=== PATIENT | female | born 1960 | race Two or more races ===

== ENCOUNTER 2025-03-02 18:11 | Inpatient (IN) | payer MEDICAID ==
[~2025-03-02] VITALS: Ht 152.4 cm; Wt 78.6 kg
[~2025-03-02 18:11] MED LIST: LISI2.5T47 PO; NIFE1TAB31 PO; SODI650T PO
[2025-03-02] MEDS: INSULIN LISPRO (HUMAN) 100 UNITS/ML ML SC SCH (22:00)
--- NOTE | 2025-03-02 22:09 | DVHHP2 ---
Admitting Diagnosis: Acute diastolic congestive heart failure Anasarca Exertional shortness of breath Uncontrolled hypertension Acute on chronic renal failure - History of Present Illness Ms. Cheri Goff 64-year-old middle-aged female of middle-aged origin, with known Longstanding history of uncontrolled hypertension x yrs. Uncontrolled NIDDM x 2 yrs recently treated for gouty arthritis affecting left foot at [facility], as of March 01 Known history of chronic kidney disease stage IV is admitted for further eval and management of progressive worsening of exertional shortness of breath, PND and lower back pains x 1 week No history of nonsteroidals, nephrotoxic agent or contrast study. Patient's poo r historian Part of the history is obtained from patient's daughter and sister. As per sister, her renal functions sister 64-year-old patient with significant history of diabetes type 2, hypertension longstanding and poorly controlled, chronic kidney disease stage 4 with baseline GFR per daughter around 17-20 following at [facility] Dr. Benavides last tele visit in December 2024. Patient denies any history of kidney stones, NSAID use or autoimmune disease. She endorses one-week history of progressive shortness of breath on exertion associated for the last couple of days with orthopnea and leg edema despite her medications which include Farxiga, hydrochlorothiazide 25 mg daily and lisinopril 2.5 mg daily in addition to excited to for history of DVT. Patient also complains of left 1st metatarsophalangeal joint pain and swelling for the last couple of days. She de nies difficulty with micturition, complains of mild dysuria and denies any hematuria but complains of bilateral flank pain 5/10 worse with changing movement no fevers no chills. Laboratory data reveals serum creatinine 2.66 mg/dL with GFR of 19, hyperuric emia of 11 and chest x-ray showing cephalization of the pulmonary vasculature. And cardiomegaly. Past Medical History Hypertension, diabetes type 2, Chronic kidney disease four Past Medical History Past medical history records: Reviewed Cardiovascular history: Known history of hypertension x years complicated by CKD Did not comply with medication and diet for long time Currently on combination of Procardia, lisinopril, and HCTZ Respiratory history: Known history of obesity hypoventilation, sleep apnea Gastrointestinal history: GE reflux Genitourinary history: Known history of chronic kidney disease stage 4 Recently hospitalized at [facility] on March 01, 2025 Endocrine history: Known history of knp-[id number] diabetes Hemoglobin A1c runs around 6.5 % Currently on Farxiga 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 Neurology history: Musculoskeletal history: Known history of gout- Hemato-oncology history: Psychiatric history: Mixed affect disorder Allergies: Coded Allergies: NO KNOWN ALLERGIES (Unverified , 03/02/25) Home Meds Active Scripts Furosemide (Lasix) 20 Mg Tb, 1 TAB PO DAILY PRN, #50 TAB 1 Refill PRN edema at 2-3 times/ week to max once/d Prov:AMY QURESHI MD 03/06/25 Prednisone (Prednisone) 20 Mg Tab, 20 MG PO DAILY@LUNCH for 10 Days, #10 TAB Prov:AMY QURESHI MD 03/06/25 Losartan Potassium (Losartan Potassium) 25 Mg Tab, 12.5 MG PO DAILY@700 for 90 Days, TAB Hold if SBP <100 Contact PMD if angioedema Prov:AMY QURESHI MD 03/06/25 Allopurinol (ZYLOPRIM TABLET) 100 Mg Tb, 50 MG PO DAILY@1000 for 90 Days, TAB Prov:AMY QURESHI MD 03/06/25 Dapagliflozin Propanediol (Farxiga) 10 Mg Tab, 1 TAB PO DAILY@BREAKFAST for 90 Days, #90 TAB Hold if dizzy or SBP <100 Prov:AMY QURESHI MD 03/06/25 Rivaroxaban (Xarelto Tablet) 10 Mg Tb, 1 TAB PO DAILY@1400 for 90 Days, #90 TAB Hold if internal bleeding Prov:AMY QURESHI MD 03/06/25 Atorvastatin Calcium (ATORVASTATIN CALCIUM) 40 Mg Tab, 1 TAB PO DAILY@DINNER for 90 Days, #90 TAB Hold if muscle cramps Prov:AMY QURESHI MD 03/06/25 Docusate Sodium (Docusate Sodium) 100 Mg Cap, 100 MG PO BID for 50 Days, #100 CAP Prov:AMY QURESHI MD 03/06/25 Reported Medications Sodium Bicarbonate (Sodium Bicarbonate) 650 Mg Tab, 1 TAB PO DAILY for 90 Days, #90 03/02/25 Discontinued Reported Medications Nifedipine (Nifedipine Er) 30 Mg Tab, 1 TAB PO DAILY for 60 Days, #60 5/8/25 Lisinopril (Lisinopril) 2.5 Mg Tab, 1 TAB PO DAILY for 90 Days, #180 TAKE 1 TABLET BY MOUTH DAILY NEEDED FOR BP > 140/90, REPEAT DOSE IN 1 HOUR IF BP ELEVATED DIRECTED. 03/02/25 Hctz (Hydrochlorothiazide) 25 Mg Tab, 1 TAB PO DAILY 03/02/25 Current Medications Current Medications Medications (Trade) Dose Ordered Sig/Zak Route PRN Reason Start Time Stop Time Status Last Admin Sennosides (Senokot Tablet) 8.6 mg HS PO 03/05/25 22:00 03/06/25 18:43 DC 03/05/25 21:19 Prednisone 20 mg DAILY PO 03/06/25 10:00 03/06/25 18:43 DC 03/06/25 09:02 Rivaroxaban (Xarelto Tablet) 10 mg DAILY PO 03/06/25 10:00 03/06/25 18:43 DC 03/06/25 09:03 Review of Systems Constitutional: Denies easy tiredness, denies fever chills weight loss HEENT: Denies headache/conjunctival/ENT pains or congestion, Denies hoarse voice, hearing or visual deficit Neck: Denies cervical spine local/radicular pains, denies goiters/ stridor Denies stiffness spasms, reduced ROM, RS: Denies chest congestion, cough, wheezing, SOB, pleuritic chest pains CVS: Denies angina, palpitation, SOB, edema, orthopnea, PND GI: Denies loss of appetite, abdominal pains, tenderness, N/V/D, Denies melena, GI bleeding,constipation, : Denies dysuria, flank pains, frequency, hematuria, Denies passing foul odor/cloudy turbid urine, nocturia MS: Denies generalized aches/pains, back pains, spasms, stiffness, Denies radicular pains, denies generalized myalgias/muscle weakness EXTs: Denies edema, rash, open wounds, discoloration, radicular pains NEURO: Denies hypersomnolence, confused mental status, Denies focal weakness or seizures/tremors/myoclonic jerks SKIN: Denies rashes or open ulcerated wound ENDOCRINE: Denies polyuria, polydipsia, denies intolerance to heat and cold HEM/LYMPH: Denies easy tiredness, bruising, lymphadenopathy ALLERGY: Denies allergic reactions Psychiatry: Denies anxiety or depression disorder Otherwise the Review of Systems is Negative as per History & Physical Interview: Yes Vital Signs Vital Signs Date Time Temp Pulse Resp B/P (MAP) Pulse Ox O2 Delivery O2 Flow Rate FiO2 03/06/25 13:00 98.0 57 17 105/63 (77) 95 98.0 03/06/25 07:30 Room Air* 0 21 Physical Exam General appearance: Well-developed, well-nourished Awake alert oriented x3 no respiratory distress Head: Normocephalic nontraumatic Eyes: EOMI, TERRA, sclera nonicteric, conjunctive- pale ENT: No congestion, NSL bilateral symmetrical, oral mucosa dry Neck: Supple, carotid upstroke +2, trachea midline, JVD-3 cm, C spine- Full ROM No thyroid or lymph node , no use of sternomastoid muscle Chest: Bilateral symmetrical expansions, No costochondral tenderness Breasts: I exam - Bilateral symmetrical, Pexam - deferred Lungs: clear breath sounds all over except reduced at bases CVS: PMI- cm medial to L MCL in fifth ICS , S1- S2 NSR no S3 GI: Abdomen soft, obese, bowel sounds normoactive No focal tenderness, no rebound tenderness No hepatosplenomegaly, no mass no hernia , : No CVA tenderness, no bladder mass palpable, genitalia-NE SKIN: Turgor normal, color pink, no rash, no icterus, No varicosity, no ulcers or wounds EXTs: No edema, color pink, no rash, no ecchymosis distal pulses +2 capillary refill <2 seconds, No open wounds JOINTS; full range of motion BACK: No apparent lumbosacral spinal muscle tenderness, LYMPH NODES: No cervical, axillary or inguinal lymph nodes Neuro: Awake alert oriented 4, coherent, all cognitives- intact No pronator drift, no focal motor deficit, No focal sensory deficit, DTR +2, gait steady PSYCH: Affect mildly depressed-denies suicidal ideation Results Labs Test 03/06/25 06:15 03/05/25 05:26 03/04/25 05:28 03/03/25 18:20 Range/Units POC Glucose 142 H 70-106 mg/dl Sodium Level 135 L 136-145 mmol/L Potassium Level 3.5 3.5-5.1 mmol/L Chloride Level 100 98-107 mmol/L Carbon Dioxide Level 22 20-31 mmol/L Anion Gap 13 5-15 Blood Urea Nitrogen 69 H 9-23 mg/dL Creatinine 3.04 H 0.550-1.02 mg/dL Glomerular Filtration Rate Calc 17 >90 mL/min BUN/Creatinine Ratio 22.7 H 10.0-20.0 Serum Glucose 122 H 74-106 mg/dL Uric Acid 12.2 H 3.1-7.8 mg/dL Calcium Level 9.2 8.7-10.4 mg/dL Erythrocyte Sedimentation Rate 28 H 0-20 mm/hr C-Reactive Protein High Sensitivity 0.73 <1.0 mg/dL Hepatitis B Surface Antigen Negative Negative Hepatitis B Surface Antibody Negative Negative Hepatitis C Antibody Negative Negative Urine Color Colorless Yellow Urine Clarity Clear Clear Urine pH 5.0 5.0-9.0 Urine Specific [place] 1.005 1.001-1.035 Urine Protein Negative Negative Urine Ketones Negative Negative Urine Blood Negative Negative /uL Urine Nitrite Negative Negative Urine Bilirubin Negative Negative Urine Urobilinogen Normal Negative mg/dL Urine Leukocyte Esterase Negative Negative /uL Urine RBC None seen 0 - 4 /hpf Urine Microscopic WBC 0-5 /HPF Urine Squamous Epithelial Cells None seen <5 /hpf Urine Bacteria None seen None Seen /hpf Urine Creatinine 14.45 L 30.0-125.0 mg/dL Urine Protein/Creatinine Ratio 0.42 Urine Glucose 2+ H Normal mg/dL Urine Total Protein < 6.0 1-14 mg/dL Test 03/03/25 15:50 03/03/25 04:28 Range/Units Anti-Nuclear Antibody Screen Negative Negative Complement C3 132 82-167 mg/dL Complement C4 46 H 12-38 mg/dL White Blood Count 7.3 4.4-10.8 10^3/uL Red Blood Count 3.99 L 4.0-5.20 10^6/uL Hemoglobin 11.6 L 12.2-16.2 g/dL Hematocrit 33.2 #L 36.0-46.0 % Mean Corpuscular Volume 83.2 80.0-100.0 fL Mean Corpuscular Hemoglobin 29.1 28.0-32.0 pg Mean Corpuscular Hemoglobin Concent 34.9 32.0-36.0 g/dL Red Cell Distribution Width 13.4 11.8-14.3 % Platelet Count 287 140-450 10^3/uL Mean Platelet Volume 9.0 6.9-10.8 fL Neutrophils (%) (Auto) 50.8 37.0-80.0 % Lymphocytes (%) (Auto) 41.4 10.0-50.0 % Monocytes (%) (Auto) 7.2 0.0-12.0 % Eosinophils (%) (Auto) 0.3 0.0-7.0 % Basophils (%) (Auto) 0.3 0.0-2.0 % Neutrophils # (Auto) 3.7 1.6-8.6 10 ^3/uL Lymphocytes # (Auto) 3.0 0.4-5.4 10 ^3/uL Monocytes # (Auto) 0.5 0-1.3 10 ^3/uL Eosinophils # (Auto) 0 0-0.8 10 ^3/uL Basophils # (Auto) 0 0-0.2 10 ^3/uL Nucleated Red Blood Cells 0.1 % Hemoglobin A1c 6.2 H <5.7 % A1C Phosphorus Level 3.9 2.4-5.1 mg/dL Magnesium Level 2.1 1.6-2.6 mg/dL Total Bilirubin 0.3 0.2-1.0 mg/dL Aspartate Amino Transferase (AST) 13 13-40 U/L Alanine Aminotransferase (ALT) 17 7-40 U/L Alkaline Phosphatase 87 46-116 U/L Total Protein 6.8 5.7-8.2 g/dL Albumin 4.4 3.2-4.8 g/dL Triglycerides Level 94 < 150 mg/dL Cholesterol Level 153 < 200 mg/dL LDL Cholesterol 71 < 100 mg/dL HDL Cholesterol 59 40-59 mg/dL Microbiology Date/Time Source Procedure Growth Status 03/03/25 18:20 Urine - Midstream Clean Catch Urine Culture - Final Complete Primary Diagnosis Acute on chronic congestive heart failure Acute cor pulmonale Acute on chronic renal failure Acute gout Uncontrolled NIDDM Uncontrolled hypertension Admitting Diagnosis: Acute on chronic congestive heart failure Acute cor pulmonale Acute on chronic renal failure Acute gout Uncontrolled NIDDM Uncontrolled hypertension 2' Diagnosis/Comorbidities Exogenous obesity in a young adult with current BMI > 30-35 kg per m2 Plan admit patient to telemetry floor Serial EKGs and enzymes 2D echocardiogram Continue NTG 0.4 mg sublingual Q 5 minutes x3 p.r.n. angina Continue lisinopril 2.[address] patient on hydralazine 50 mg p.o. Q 8 hr Renal ultrasound Daily intake and output AMY QURESHI MD March 02, 2025 22:09
[2025-03-02 22:35] VITALS: BP 159/49; PULSE 77; RESP 18; TEMP 97.8; O2SAT 99
[2025-03-02] MEDS ORDERED: ALPRAZolam 0.25 MG TAB PO PRN (23:00)
[2025-03-02 23:12] LABS: Phosphorus 3.9 mg/dL (2.4-5.1); Uric Acid 10.9 mg/dL (3.1-7.8)
[2025-03-02] MEDS ORDERED: DAPA1TAB4 PO (23:23)
[2025-03-02] MEDS ORDERED: RIVA10TA2 PO (23:23)
[2025-03-02] MEDS ORDERED: HYDR25TA5 PO (23:23)
[2025-03-02] MEDS ORDERED: ATOR40TA52 PO (23:23)
[2025-03-02 23:24] VITALS: BP 160/49; PULSE 77; RESP 18; TEMP 97.8
--- NOTE | 2025-03-02 23:37 | DVH ---
BILATERAL LOWER EXTREMITY VENOUS DOPPLER ULTRASOUND CLINICAL HISTORY: H/o DVT TECHNIQUE: Grayscale ultrasound with compression, color Doppler flow imaging with pulsed duplex sonog lev of the bilateral lower extremity deep venous system from the common femoral veins through the p opliteal veins is performed. COMPARISON: None FINDINGS: Right common femoral vein: Negative. Right greater saphenous vein: Negative. Right deep femoral vein: Negative. Right femoral vein: Negative. Right popliteal vein: Negative. Left common femoral vein: Negative. Left greater saphenous vein: Negative. Left deep femoral vein: Negative. Left femoral vein: Negative. Left popliteal vein: Negative. Other: Visualized bilateral popliteal trifurcation and posterior tibial veins demonstrate color flow. IMPRESSION: No sonographic evidence of deep venous thrombosis in either lower extremity at this time. HS:Y
[2025-03-02] MEDS: ATORVASTATIN 20 MG TAB PO ONE (23:45)
[2025-03-03] VITALS (7 sets, daily range): BP systolic 118–154; BP diastolic 46–69; PULSE 61–89; RESP 16–19; TEMP 97.8–98.6; O2SAT 96–99
[2025-03-03] MEDS: ATORVASTATIN 20 MG TAB PO ONE (01:24)
[2025-03-03 06:25] LABS: Alanine Aminotransferase 17 U/L (7-40); Albumin 4.4 g/dL (3.2-4.8); Alkaline Phosphatase 87 U/L (46-116); Anion Gap 12 (5-15); Aspartate Aminotransferase 13 U/L (13-40); BUN/Creatinine Ratio 25.9 (10.0-20.0); Calcium 9.5 mg/dL (8.7-10.4); Carbon Dioxide 20 mmol/L (20-31); Chloride 102 mmol/L (98-107); Cholesterol 153 mg/dL (< 200); HDL Cholesterol 59 mg/dL (40-59); LDL Cholesterol 71 mg/dL (< 100); Magnesium 2.1 mg/dL (1.6-2.6); Potassium 3.9 mmol/L (3.5-5.1); Total Protein 6.8 g/dL (5.7-8.2); Triglycerides 94 mg/dL (< 150)
[2025-03-03 06:26] LABS: Phosphorus 3.9 mg/dL (2.4-5.1)
[2025-03-03 06:28] LABS: Basophils # (auto) 0 10 ^3/uL (0-0.2); Basophils % (auto) 0.3 % (0.0-2.0); Eosinophils # (auto) 0 10 ^3/uL (0-0.8); Eosinophils % (auto) 0.3 % (0.0-7.0); Hematocrit 33.2 % (36.0-46.0); Hemoglobin 11.6 g/dL (12.2-16.2); Lymphocytes % (auto) 41.4 % (10.0-50.0); Mean Corpuscular Hemoglobin 29.1 pg (28.0-32.0); Mean Corpuscular Hgb Conc. 34.9 g/dL (32.0-36.0); Mean Corpuscular Volume 83.2 fL (80.0-100.0); Monocytes # (auto) 0.5 10 ^3/uL (0-1.3); Monocytes % (auto) 7.2 % (0.0-12.0); Neutrophils # (auto) 3.7 10 ^3/uL (1.6-8.6); Neutrophils % (auto) 50.8 % (37.0-80.0); Nucleated Red Blood Cells % 0.1 %; Platelet Count (auto) 287 10^3/uL (140-450); Red Blood Cells 3.99 10^6/uL (4.0-5.20); Red Cell Distribution Width 13.4 % (11.8-14.3); White Blood Cell 7.3 10^3/uL (4.4-10.8)
[2025-03-03 06:29] LABS: Bilirubin, Total 0.3 mg/dL (0.2-1.0); Blood Urea Nitrogen 69 mg/dL (9-23); Glucose 114 mg/dL (74-106); Sodium 134 mmol/L (136-145)
[2025-03-03 06:44] LABS: Uric Acid 11.2 mg/dL (3.1-7.8)
--- NOTE | 2025-03-03 06:54 | DVH ---
EXAM: XR Chest, 1 View CLINICAL INDICATION: CHF TECHNIQUE: Frontal view of the chest. COMPARISON: None FINDINGS: LUNGS AND PLEURAL SPACES: See below. HEART: Cardiomegaly with mild congestion. MEDIASTINUM: Unremarkable. Normal mediastinal contour. BONES/JOINTS: Unremarkable. No acute fracture. OTHER FINDINGS: . . . IMPRESSION: Cardiomegaly with mild congestion.
--- NOTE | 2025-03-03 07:04 | DVH ---
EXAM: XR Left Foot, 2 Views CLINICAL INDICATION: gout TECHNIQUE: Frontal and lateral views of the left foot. COMPARISON: None FINDINGS: BONES/JOINTS: See below. SOFT TISSUES: Soft tissue swelling without acute fracture. No radiopaque foreign body. OTHER FINDINGS: . IMPRESSION: 1. Soft tissue swelling without acute fracture. 2. If symptoms persist, further evaluation with CT is recommended.
[2025-03-03] MEDS: EMPAGLIFLOZIN 10 MG TAB PO SCH (08:00)
[2025-03-03] MEDS: SODIUM BICARBONATE 650 MG TAB PO SCH (10:38)
[2025-03-03] MEDS: LISINOPRIL 5 MG TAB PO SCH (10:39)
--- NOTE | 2025-03-03 15:50 | DVHINCON2 ---
Date of service: March 03, [address] Rob Reason for Consultation Chronic kidney disease History of Present Illness 64-year-old patient with significant history of diabetes type 2, hypertension longstanding and poorly controlled, chronic kidney disease stage 4 with baseline GFR per daughter around 17-20 following at [facility] Dr. Benavides last tele visit in December 2024. Patient denies any history of kidney stones, NSAID use or autoimmune disease. She endorses one-week history of progressive shortness of breath on exertion associated for the last couple of days with orthopnea and leg edema despite her medications which include Farxiga, hydrochlorothiazide 25 mg daily and lisinopril 2.5 mg daily in addition to excited to for history of DVT. Patient also complains of left 1st metatarsophalangeal joint pain and swelling for the last couple of days. She denies difficulty with micturition, complains of mild dysuria and denies any hematuria but complains of bilateral flank pain 5/10 worse with changing movement no fevers no chills. Laboratory data reveals serum creatinine 2.66 mg/dL with GFR of 19, hyperuricemia of 11 and chest x-ray showing cephalization of the pulmonary vasculature. And cardiomegaly. Past Medical History Hypertension, diabetes type 2, Chronic kidney disease four Past Surgical History Patient denies any history of kidney biopsy Allergies: Coded Allergies: NO KNOWN ALLERGIES (Unverified , 03/02/25) Home Meds Reported Medications Dapagliflozin Propanediol (Farxiga) 10 Mg Tab, 1 TAB PO DAILY 03/02/25 Lisinopril (Lisinopril) 2.5 Mg Tab, PO 03/02/25 Hctz (Hydrochlorothiazide) 25 Mg Tab, 1 TAB PO DAILY 03/02/25 Sodium Bicarbonate (Sodium Bicarbonate) 650 Mg Tab, 1 PO DAILY 03/02/25 Rivaroxaban (Xarelto Tablet) 10 Mg Tb, 1 TAB PO DAILY 03/02/25 Atorvastatin Calcium (ATORVASTATIN CALCIUM) 40 Mg Tab, 1 TAB PO DAILY 03/02/25 Current Medications Current Medications Medications (Trade) Dose Ordered Sig/Zak Route PRN Reason Start Time Stop Time Status Last Admin Atorvastatin Calcium (Lipitor) 40 mg HS PO 03/03/25 22:00 Lisinopril (Zestril Tablet) 2.5 mg DAILY PO 03/03/25 10:00 03/03/25 10:39 Empaglifozin (Jardiance) 10 mg DAILY@0800 PO 03/03/25 08:00 Insulin Human Lispro (HumaLOG) ACHS SC 03/02/25 22:00 Sodium Bicarbonate 650 mg BID PO 03/03/25 10:00 03/03/25 10:38 Alprazolam (Xanax Tablet) 0.25 mg Q12HP PRN PO ANXIETY 03/02/25 23:00 Hydrocortisone Sodium Succinate (Solu-CORTEF INJECTION) 50 mg Q12HR IV 03/03/25 22:00 Allopurinol (Zyloprim Tablet) 100 mg DAILY PO 03/04/25 10:00 03/03/25 13:31 DC Allopurinol (Zyloprim Tablet) 50 mg DAILY PO 03/03/25 13:31 Family History: Diabetes mellitus G8 MOTHER FH: kidney disease G8 FATHER Hypertension G8 MOTHER Family History Coronary artery disease in the father as well as Chronic kidney disease requiring dialysis. Kidney stones in the daughter. Review of Systems HEENT: Oral mucosa dry Neck no JVD Cardiovascular: Denies for chest pain denies positive for orthopnea leg edema Respiratory: Positive for dyspnea on exertion, orthopnea Gastrointestinal: Denies for nausea vomiting Musculoskeletal: Denies myalgias Neurological: Denies focal weakness Dermatological: Denies any rash : Bilateral flank pain The rest of the review of systems were reviewed pertinent positives and pertinent negatives are as per HPI up to 12 points review of systems H&P Exam Vital Signs/I&O Vital Sign Date Time Temp Pulse Resp B/P (MAP) Pulse Ox O2 Delivery O2 Flow Rate FiO2 03/03/25 13:00 98.6 64 18 125/46 (72) 99 98.6 03/02/25 22:35 Room Air* 0 21 Intake and Output 03/02/25 03/03/25 19:00 07:00 Intake Total 400 ml Balance 400 ml Intake Oral 400 ml # Voids 1 Physical Exam HEENT: No evidence of JVD, no oral ulcers. Pulmonary: Minimal crackles at the bases left more than right on auscultation bilaterally Cardiovascular S1-S2, no S3 or S4 Abdomen: Bowel sounds positive, soft no rebound tenderness Skin: No rash Genitourinary: No flank pain to percussion Extremities: Trace edema in the lower extremities tender left 1st metatarsophalangeal joint. Neurological: Alert, oriented, no focal weakness Labs/Diagnostic Data Labs/Diagnostic Data Laboratory Tests Test 03/03/25 11:52 03/03/25 05:45 03/03/25 04:28 03/02/25 23:34 Range/Units POC Glucose 126 H 113 H 108 H 70-106 mg/dl White Blood Count 7.3 4.4-10.8 10^3/uL Red Blood Count 3.99 L 4.0-5.20 10^6/uL Hemoglobin 11.6 L 12.2-16.2 g/dL Hematocrit 33.2 #L 36.0-46.0 % Mean Corpuscular Volume 83.2 80.0-100.0 fL Mean Corpuscular Hemoglobin 29.1 28.0-32.0 pg Mean Corpuscular Hemoglobin Concent 34.9 32.0-36.0 g/dL Red Cell Distribution Width 13.4 11.8-14.3 % Platelet Count 287 140-450 10^3/uL Mean Platelet Volume 9.0 6.9-10.8 fL Neutrophils (%) (Auto) 50.8 37.0-80.0 % Lymphocytes (%) (Auto) 41.4 10.0-50.0 % Monocytes (%) (Auto) 7.2 0.0-12.0 % Eosinophils (%) (Auto) 0.3 0.0-7.0 % Basophils (%) (Auto) 0.3 0.0-2.0 % Neutrophils # (Auto) 3.7 1.6-8.6 10 ^3/uL Lymphocytes # (Auto) 3.0 0.4-5.4 10 ^3/uL Monocytes # (Auto) 0.5 0-1.3 10 ^3/uL Eosinophils # (Auto) 0 0-0.8 10 ^3/uL Basophils # (Auto) 0 0-0.2 10 ^3/uL Nucleated Red Blood Cells 0.1 % Sodium Level 134 L 136-145 mmol/L Potassium Level 3.9 3.5-5.1 mmol/L Chloride Level 102 98-107 mmol/L Carbon Dioxide Level 20 20-31 mmol/L Anion Gap 12 5-15 Blood Urea Nitrogen 69 H 9-23 mg/dL Creatinine 2.66 H 0.550-1.02 mg/dL Glomerular Filtration Rate Calc 19 >90 mL/min BUN/Creatinine Ratio 25.9 H 10.0-20.0 Serum Glucose 114 H 74-106 mg/dL Hemoglobin A1c 6.2 H <5.7 % A1C Uric Acid 11.2 H 3.1-7.8 mg/dL Calcium Level 9.5 8.7-10.4 mg/dL Phosphorus Level 3.9 2.4-5.1 mg/dL Magnesium Level 2.1 1.6-2.6 mg/dL Total Bilirubin 0.3 0.2-1.0 mg/dL Aspartate Amino Transferase (AST) 13 13-40 U/L Alanine Aminotransferase (ALT) 17 7-40 U/L Alkaline Phosphatase 87 46-116 U/L Total Protein 6.8 5.7-8.2 g/dL Albumin 4.4 3.2-4.8 g/dL Triglycerides Level 94 < 150 mg/dL Cholesterol Level 153 < 200 mg/dL LDL Cholesterol 71 < 100 mg/dL HDL Cholesterol 59 40-59 mg/dL Test 03/02/25 22:43 Range/Units Uric Acid 10.9 H 3.1-7.8 mg/dL Phosphorus Level 3.9 2.4-5.1 mg/dL Chest x-ray shows cephalization of the pulmonary vasculature Assessment Assessment: 1. Acute kidney injury versus Chronic kidney disease 4 2. CHF exacerbation, diastolic at least 3. Hyperuricemia 4. Acute gout attack 5. Bilateral flank pain concerns for lithiasis, UTI 6. Diabetes type 2 7. Hypertension, poorly controlled Plan and recommendations: Lasix 40 mg IV x1 Continue with steroids could use prednisone instead of NSAIDs for acute gout attack along with allopurinol continue 50 mg daily Low purine diet, diabetes in consultation for this Discontinue hydrochlorothiazide upon discharge Renal ultrasound rule out lithiasis Concerns for gouty nephropathy as the etiology for her Chronic kidney disease, diagnosed. Check double-stranded DNA, HINA, C3-C4 UA, urine protein creatinine ratio, urine culture 2D echo, cardiology consult Analgesia Avoid IV contrast For now continue rest of medications and monitor closely Kidney biopsy at this point to recently and likely will yield mostly scar tissue. Patient might benefit from genetic testing as an outpatient Thank you very much for allowing us to participate in the care of this patient. Plan discussed with: Patient, Daughter MAXIMINO ALEX MD March 03, 2025 15:50
--- NOTE | 2025-03-03 16:06 | DVH ---
INDICATION: NANCY and RUQ pain. Evaluate for hydro, stones, mass, liver di TECHNIQUE: Multiple real-time sonographic images of the abdomen were obtained. COMPARISON: None FINDINGS: The liver is increased in echogenicity and measures 11.9 cm. No intrahepatic biliary ducta l dilatation is noted. No hepatic masses masses were seen. The gallbladder wall measures 2 mm. There is cholelithiasis. The common duct measures 4 mm. No arpita cholecystic fluid. The right kidney measures 8 cm. No hydronephrosis. Increased echogenicity. The left kidney measures 8.6 cm. No hydronephrosis. Increased echogenicity. The spleen measures 11.1 cm. The imaged portion of the pancreas is unremarkable. IMPRESSION: 1. Cholelithiasis 2. Echogenic liver which can be seen with hepatic steatosis, cirrhosis. 3. Small and echogenic kidneys which can be seen with medical renal disease.
[2025-03-03] MEDS: ALLOPURINOL 100 MG TAB PO SCH (17:18)
[2025-03-03] MEDS: FUROSEMIDE 40 MG/4 ML VIAL IV ONE (17:19)
[2025-03-03 20:49] LABS: Urine Bacteria None Seen /hpf (None Seen)
[2025-03-03 21:02] LABS: Urine Blood Negative /uL (Negative); Urine Clarity Clear (Clear); Urine Color Colorless (Yellow); Urine Protein, UAD Negative (Negative); Urine Specific Gravity 1.005 (1.001-1.035); Urine Squamous Epithelial Cell None Seen /hpf (<5); Urine Urobilinogen Normal (Negative)
[2025-03-03] MEDS: HYDROCORTISONE SOD SUCC 100 MG/2ML INJ VIAL IV SCH (21:10)
[2025-03-03] MEDS: ATORVASTATIN 20 MG TAB PO SCH (21:16)
[2025-03-03 21:17] LABS: Creatinine, Urine 14.45 mg/dL (30.0-125.0); Urine Protein/Creatinine Ratio 0.42
[2025-03-03 21:36] LABS: Protein, Urine < 6.0 mg/dL (1-14)
--- NOTE | 2025-03-03 21:40 | DVHPN2 ---
Progress Note - Dictate Date Seen: March 03, 2025 Subjective Currently being treated for NANCY on CKD, CHF and acute gout vital signs Vital Sign Date Time Temp Pulse Resp B/P (MAP) Pulse Ox O2 Delivery O2 Flow Rate FiO2 03/03/25 17:19 137/53 03/03/25 16:34 98.4 67 18 98 98.4 03/03/25 08:00 Room Air* 0 21 Total Intake and Output 03/02/25 03/02/25 03/03/25 15:00 23:00 07:00 Intake Total 400 ml Balance 400 ml medications Current Medications Medications Dose Ordered Sig/Zak Route Start Time Stop Time Status Last Admin Dose Admin Atorvastatin Calcium 40 mg HS PO 03/03/25 22:00 03/03/25 21:16 Lisinopril 2.5 mg DAILY PO 03/03/25 10:00 03/03/25 10:39 Empaglifozin 10 mg DAILY@0800 PO 03/03/25 08:00 Insulin Human Lispro ACHS SC 03/02/25 22:00 Sodium Bicarbonate 650 mg BID PO 03/03/25 10:00 03/03/25 21:17 Alprazolam 0.25 mg Q12HP PRN PO 03/02/25 23:00 Hydrocortisone Sodium Succinate 50 mg Q12HR IV 03/03/25 22:00 03/03/25 21:10 Allopurinol 50 mg DAILY PO 03/03/25 13:31 03/03/25 17:18 laboratory and microbiology Laboratory Tests 03/03/25 04:28 Test 03/03/25 04:28 Range/Units Serum Glucose 114 H 74-106 mg/dL Problem List Acute on chronic congestive heart failure Acute cor pulmonale Acute on chronic renal failure Acute gout Uncontrolled NIDDM Uncontrolled hypertension Exogenous obesity in a young adult with current BMI > 30-35 kg per m2 Assessment/Plan admit patient to telemetry floor Serial EKGs and enzymes 2D echocardiogram Continue NTG 0.4 mg sublingual Q 5 minutes x3 p.r.n. angina Continue lisinopril 2.[address] patient on hydralazine 50 mg p.o. Q 8 hr Reviewed results of Renal ultrasound Awaiting results of 2D echo Daily intake and output Prognosis guarded AMY QURESHI MD March 03, 2025 21:40
[2025-03-03] MEDS ORDERED: POLYETHYLENE GLYCOL 17 GM PWDR PO PRN (21:45)
[2025-03-03] MEDS ORDERED: POLYETHYLENE GLYCOL 17 GM PWDR PO ONE (21:45)
--- NOTE | 2025-03-03 22:07 | DVHSR ---
APPROVED REPORT EXAM: Two-dimensional and M-mode echocardiogram with Doppler and color Doppler. Blood Pressure: 118/56 mmHg INDICATION Heart Failure RISK FACTORS Height: 5', Weight: 159 DIMENSIONS LVDd4.0 (3.8-5.7cm)LA (2D)3.2 (1.9-4.0cm)Aortic Root2.9 (2.0-3.7cm) LVDs2.5 (2.5-4.0cm)LA (MM) (1.9-4.0cm)Aortic Cusp Exc1.6 (1.5-2.0cm) EF (%) 68.0 (55-70%)Rt. Atrium3.1 (1.9-4.0cm)Asc. Aorta3.0 cm IVSd0.9 (0.7-1.1cm)RV (D)2.9 (1.8-2.4cm) PWd0.8 (0.7-1.1cm) Mitral Valve MitralMitral Stenosis E wave0.90m/sMV Mean GR.mmHg A wave0.98m/sMV Peak GR.mmHg E/A ratio0.92D MVAcm2 DECEL [id number] 1/2 [place] Aortic Valve Aortic ValveAortic Stenosis V11.23m/[place] Mean GR.6mmHg V21.78m/[place] Peak GR.13mmHg LVOT Diameter1.9 (1.8-2.4cm)Doppler AVA1.96cm2 AI P 1/2 Maqi495.12ms Pulmonic Valve V20.81m/s Tricuspid Valve TR Velocity2.42m/s [id number] Other Information Quality : Technically LimitedRhythm : Technically limited study due to body habitus. Conclusion Normal LV size and systolic function. LVEF estimated at 60-65%. Normal wall motion. Grade 1 diastolic dysfunction. Normal RV size and systolic function. Trileaflet aortic valve with mild sclerosis. Mild AI. Trace TR. RVSP estimated at 28 mmHg based on an RAP of 3 mmHg. Normal IVC. No pericardial effusion.
[2025-03-04] VITALS (8 sets, daily range): BP systolic 98–133; BP diastolic 56–63; PULSE 66–94; RESP 16–19; TEMP 98–98.6; O2SAT 94–97
[2025-03-04 08:15] LABS: Erythrocyte Sedimentation Rate 28 mm/hr (0-20)
[2025-03-04] MEDS ORDERED: ALLOPURINOL 100 MG TAB PO SCH (10:00)
[2025-03-04 13:12] LABS: Chloride 103 mmol/L (98-107); Potassium 4.4 mmol/L (3.5-5.1); Sodium 138 mmol/L (136-145)
[2025-03-04 13:13] LABS: Anion Gap 16 (5-15); Calcium 9.7 mg/dL (8.7-10.4)
[2025-03-04 13:18] LABS: BUN/Creatinine Ratio 23.6 (10.0-20.0)
[2025-03-04 13:24] LABS: Blood Urea Nitrogen 70 mg/dL (9-23); Carbon Dioxide 19 mmol/L (20-31); Glucose 121 mg/dL (74-106)
--- NOTE | 2025-03-04 14:18 | DVHINCON2 ---
Date of service: March 04, 2025 History of Present Illness 64 yo F with advanced CKD, DM, gout admitted for elevated creat. pt had cv workup 1 year ago in [facility]. I am consulted for eval. pt denies a hx of cad or chf. Past Medical History reviewed Family History: Diabetes mellitus G8 MOTHER FH: kidney disease G8 FATHER Hypertension G8 MOTHER Allergies: Coded Allergies: NO KNOWN ALLERGIES (Unverified , 03/02/25) Home Meds Reported Medications Nifedipine (Nifedipine Er) 30 Mg Tab, 1 TAB PO DAILY for 60 Days, #60 03/04/25 Dapagliflozin Propanediol (Farxiga) 10 Mg Tab, 1 TAB PO DAILY 03/02/25 Lisinopril (Lisinopril) 2.5 Mg Tab, 1 TAB PO DAILY for 90 Days, #180 TAKE 1 TABLET BY MOUTH DAILY NEEDED FOR BP > 140/90, REPEAT DOSE IN 1 HOUR IF BP ELEVATED DIRECTED. 03/02/25 Hctz (Hydrochlorothiazide) 25 Mg Tab, 1 TAB PO DAILY 03/02/25 Sodium Bicarbonate (Sodium Bicarbonate) 650 Mg Tab, 1 TAB PO DAILY for 90 Days, #90 03/02/25 Rivaroxaban (Xarelto Tablet) 10 Mg Tb, 1 TAB PO DAILY 03/02/25 Atorvastatin Calcium (ATORVASTATIN CALCIUM) 40 Mg Tab, 1 TAB PO DAILY 03/02/25 Current Medications Current Medications Medications (Trade) Dose Ordered Sig/Zak Route PRN Reason Start Time Stop Time Status Last Admin Atorvastatin Calcium (Lipitor) 40 mg HS PO 03/03/25 22:00 03/03/25 21:16 Hydrocortisone Sodium Succinate (Solu-CORTEF INJECTION) 50 mg Q12HR IV 03/03/25 22:00 03/04/25 09:46 Allopurinol (Zyloprim Tablet) 100 mg DAILY PO 03/04/25 10:00 03/03/25 13:31 DC Polyethylene Glycol (Miralax 17GM Powder) 17 gm DAILYPRN PRN PO FOR CONSTIPATION 03/03/25 21:45 Review of Systems 10 pt ros otherwise negative Vital Signs Vital Signs Date Time Temp Pulse Resp B/P (MAP) Pulse Ox O2 Delivery O2 Flow Rate FiO2 03/04/25 12:40 98.6 82 17 124/59 (80) 96 98.6 03/04/25 08:05 Room Air* 0 21 Physical Exam nad s1 s2 rrr ctab soft nt/nd no edema Labs/Diagnostic Data Labs Test 03/04/25 11:10 03/04/25 05:28 03/03/25 18:20 03/03/25 15:50 Range/Units POC Glucose 180 H 70-106 mg/dl Erythrocyte Sedimentation Rate 28 H 0-20 mm/hr Sodium Level 138 136-145 mmol/L Potassium Level 4.4 3.5-5.1 mmol/L Chloride Level 103 98-107 mmol/L Carbon Dioxide Level 19 L 20-31 mmol/L Anion Gap 16 H 5-15 Blood Urea Nitrogen 70 H 9-23 mg/dL Creatinine 2.97 H 0.550-1.02 mg/dL Glomerular Filtration Rate Calc 17 >90 mL/min BUN/Creatinine Ratio 23.6 H 10.0-20.0 Serum Glucose 121 H 74-106 mg/dL Calcium Level 9.7 8.7-10.4 mg/dL C-Reactive Protein High Sensitivity 0.73 <1.0 mg/dL Urine Color Colorless Yellow Urine Clarity Clear Clear Urine pH 5.0 5.0-9.0 Urine Specific [place] 1.005 1.001-1.035 Urine Protein Negative Negative Urine Ketones Negative Negative Urine Blood Negative Negative /uL Urine Nitrite Negative Negative Urine Bilirubin Negative Negative Urine Urobilinogen Normal Negative mg/dL Urine Leukocyte Esterase Negative Negative /uL Urine RBC None seen 0 - 4 /hpf Urine Microscopic WBC 0-5 /HPF Urine Squamous Epithelial Cells None seen <5 /hpf Urine Bacteria None seen None Seen /hpf Urine Creatinine 14.45 L 30.0-125.0 mg/dL Urine Protein/Creatinine Ratio 0.42 Urine Glucose 2+ H Normal mg/dL Urine Total Protein < 6.0 1-14 mg/dL Test 03/03/25 04:28 Range/Units White Blood Count 7.3 4.4-10.8 10^3/uL Red Blood Count 3.99 L 4.0-5.20 10^6/uL Hemoglobin 11.6 L 12.2-16.2 g/dL Hematocrit 33.2 #L 36.0-46.0 % Mean Corpuscular Volume 83.2 80.0-100.0 fL Mean Corpuscular Hemoglobin 29.1 28.0-32.0 pg Mean Corpuscular Hemoglobin Concent 34.9 32.0-36.0 g/dL Red Cell Distribution Width 13.4 11.8-14.3 % Platelet Count 287 140-450 10^3/uL Mean Platelet Volume 9.0 6.9-10.8 fL Neutrophils (%) (Auto) 50.8 37.0-80.0 % Lymphocytes (%) (Auto) 41.4 10.0-50.0 % Monocytes (%) (Auto) 7.2 0.0-12.0 % Eosinophils (%) (Auto) 0.3 0.0-7.0 % Basophils (%) (Auto) 0.3 0.0-2.0 % Neutrophils # (Auto) 3.7 1.6-8.6 10 ^3/uL Lymphocytes # (Auto) 3.0 0.4-5.4 10 ^3/uL Monocytes # (Auto) 0.5 0-1.3 10 ^3/uL Eosinophils # (Auto) 0 0-0.8 10 ^3/uL Basophils # (Auto) 0 0-0.2 10 ^3/uL Nucleated Red Blood Cells 0.1 % Hemoglobin A1c 6.2 H <5.7 % A1C Uric Acid 11.2 H 3.1-7.8 mg/dL Phosphorus Level 3.9 2.4-5.1 mg/dL Magnesium Level 2.1 1.6-2.6 mg/dL Total Bilirubin 0.3 0.2-1.0 mg/dL Aspartate Amino Transferase (AST) 13 13-40 U/L Alanine Aminotransferase (ALT) 17 7-40 U/L Alkaline Phosphatase 87 46-116 U/L Total Protein 6.8 5.7-8.2 g/dL Albumin 4.4 3.2-4.8 g/dL Triglycerides Level 94 < 150 mg/dL Cholesterol Level 153 < 200 mg/dL LDL Cholesterol 71 < 100 mg/dL HDL Cholesterol 59 40-59 mg/dL Microbiology Date/Time Source Procedure Growth Status 03/03/25 18:20 Urine - Midstream Clean Catch Urine Culture - Preliminary Resulted Assessment gout hyperuricemia r/o chf obesity DM NANCY on ckd Plan/Recommendation treat uric acid fu renal recs on sglt for advanced CKD normal echo and lvef ecg SR pt had full cv eval 1 year ago, obtain records outpt fu no further inpatient cv recs Plan discussed with: Patient ZENAIDA LLOYD MD March 04, 2025 14:18
--- NOTE | 2025-03-04 15:06 | DVHPN2 ---
JAMSHID DASH MD March 04, 2025 15:06
[2025-03-04] MEDS ORDERED: LACTULOSE 20Gm/30ML SOLN PO PRN (16:30)
--- NOTE | 2025-03-04 17:23 | DVHPN2 ---
Progress Note - Dictate Date Seen: March 04, 2025 Medical Necessity Reason Pt with a Central, PICC or Fol: No Subjective Patient complains of constipation, abdominal bloating, back pain, upper quadrant abdominal discomfort left and right, denies fever chills or shortness of breath. Also has left 1st metatarsophalangeal joint pain. Patient was ambulating with no problem today vital signs Vital Sign Date Time Temp Pulse Resp B/P (MAP) Pulse Ox O2 Delivery O2 Flow Rate FiO2 03/04/25 12:40 98.6 82 17 124/59 (80) 96 98.6 03/04/25 08:05 Room Air* 0 21 Total Intake and Output 03/03/25 03/03/25 03/04/25 15:00 23:00 07:00 Intake Total 940 ml 300 ml Output Total 1400 ml Balance -460 ml 300 ml medications Current Medications Medications Dose Ordered Sig/Zak Route Start Time Stop Time Status Last Admin Dose Admin Atorvastatin Calcium 40 mg HS PO 03/03/25 22:00 03/03/25 21:16 40 MG Lisinopril 2.5 mg DAILY PO 03/03/25 10:00 03/04/25 09:46 2.5 MG Empaglifozin 10 mg DAILY@0800 PO 03/03/25 08:00 Insulin Human Lispro ACHS SC 03/02/25 22:00 03/04/25 11:46 2 UNITS Sodium Bicarbonate 650 mg BID PO 03/03/25 10:00 03/04/25 09:45 650 MG Alprazolam 0.25 mg Q12HP PRN PO 03/02/25 23:00 Hydrocortisone Sodium Succinate 50 mg Q12HR IV 03/03/25 22:00 03/04/25 09:46 50 MG Allopurinol 50 mg DAILY PO 03/03/25 13:31 03/04/25 09:45 50 MG Polyethylene Glycol 17 gm DAILYPRN PRN PO 03/03/25 21:45 Docusate Sodium 100 mg BID PO 03/04/25 22:00 Lactulose 30 ml Q6HR PRN PO 03/04/25 16:30 objective HEENT: No evidence of JVD, no oral ulcers. Pulmonary: Lungs are clear on auscultation bilaterally Cardiovascular S1-S2, no S3 or S4 Abdomen: Bowel sounds positive, soft no rebound tenderness Skin: No rash Neurological: Alert, oriented, no focal weakness Extremities: Left 1st metatarsophalangeal joint tenderness, no edema laboratory and microbiology Laboratory Tests 03/04/25 05:28 03/03/25 04:28 Test 03/04/25 05:28 Range/Units Serum Glucose 121 H 74-106 mg/dL Assessment/Plan Assessment: 1. Chronic kidney disease stage 4 2. CHF exacerbation, diastolic at least 3. Hyperuricemia 4. Acute gout attack, podagra 5. Bilateral flank pain concerns for lithiasis, UTI 6. Diabetes type 2 7. Hypertension 8. Constipation. 9. Cholelithiasis. 10. Fatty liver. 11. Anemia Plan and recommendations: Patient is on hydrocortisone as per primary team instead of NSAIDs for acute gout attack along with allopurinol continue 50 mg daily Low purine diet. Dietitian met with the patient Discontinue hydrochlorothiazide upon discharge, as needed Lasix 20 mg daily for leg edema Renal ultrasound reveals medical renal disease, no stones, no hydronephrosis, no mass all this was reviewed with the patient and the family at bedside. Concerns for gouty nephropathy as the etiology for her Chronic kidney disease, diagnosed. Genetic testing as an outpatient consider. Kidney biopsy at this point would likely yield only scar tissue and the risk of bleeding is significantly increased which could least two loss of kidney function that remains currently. Pending double-stranded DNA, HINA, C3-C4 No significant proteinuria, UA was bland. Analgesia Avoid IV contrast For now continue rest of medications and monitor closely Check iron studies Start bowel regimen. Offered to GI consultation and general surgery consultation but patient declined. Thank you very much for allowing us to participate in the care of this patient. Dietary Evaluation Review Comments: 1) [facility] 45gm + renal specific 50gm protein 2) Refer to out-patient RD for DM/CKD diet edu follow up 3) Continue current plan of care Expected Outcomes/Goals: lab values to improve FU 3-5 days Plan discussed with: Patient, Daughter, Son MAXIMINO ALEX MD March 04, 2025 17:23
[2025-03-04] MEDS: SENNA 8.6 MG TAB PO ONE (20:45)
--- NOTE | 2025-03-04 20:47 | DVHPN2 ---
Assessment/Plan Assessment/Plan Progress note 64 yo F with CKD4, NIDDM, obesity admitted from PCP with fluid overload. Seen today during rounds, no crackles, ambulating, breathing in room air. pain improved although still persists. outside w/u reviewed, echo no changes compared to new echo, carotid US nonrevealing. adequate UA, euvolemic clinically. Physical exam AOx4 ambulating PERRLA JVD clavicles MMM clear breath sounds, no crackles speaking in full sentences S1 S2 RRR, no murmur no s3 abdomen soft, nontender no LE edema R toe gouty arthritis, erythema, warm Labs EKG imaging reviewed Assessment and plan CKD stage 4 Fluid overload 2/2 CKD Diastolic dysfunction age appropriate HFpEF ruled out Gouty arthritis Hyperuricemia Slow transit constipation Dizziness Hypertension Obesity NIDDM c/w steroid, switch to prednisone avoid NSAID ISO CKD alupurinol no colchicine I/O diurese PRN maintain net 0, currently euvolemic ambulate, bowel reg no indication for GI or surg consult switch lisinopril to losartan for uricosuric effect fraxiga orthostatic BP cardio and renal consult appreciated diet renal dvt ppx ambulatory full code Plan discussed with: Patient, Daughter Date of Service: March 04, 2025 Billing Provider: JAMSHID DASH MD Common Visit Codes: [id number] INP/OBS CARE(HIGH) JAMSHID DASH MD March 04, 2025 20:47
--- NOTE | 2025-03-04 23:36 | DVHPN2 ---
Progress Note - Dictate Date Seen: March 04, 2025 Medical Necessity Reason Pt with a Central, PICC or Fol: No Subjective Currently being treated for NANCY on CKD, CHF and acute gout the patient was seen by Dr. Fragoso Patient was recommended outpatient cardiac workup Patient reports to have symptoms of back pain Patient's daughter had reported grievances about care vital signs Vital Sign Date Time Temp Pulse Resp B/P (MAP) Pulse Ox O2 Delivery O2 Flow Rate FiO2 03/04/25 17:00 98.5 68 18 133/60 (84) 96 98.5 03/04/25 08:05 Room Air* 0 21 Total Intake and Output 03/03/25 03/03/25 03/04/25 15:00 23:00 07:00 Intake Total 940 ml 300 ml Output Total 1400 ml Balance -460 ml 300 ml medications Current Medications Medications Dose Ordered Sig/Zak Route Start Time Stop Time Status Last Admin Dose Admin Atorvastatin Calcium 40 mg HS PO 03/03/25 22:00 03/03/25 21:16 40 MG Lisinopril 2.5 mg DAILY PO 03/03/25 10:00 03/04/25 09:46 2.5 MG Empaglifozin 10 mg DAILY@0800 PO 03/03/25 08:00 Insulin Human Lispro ACHS SC 03/02/25 22:00 03/04/25 11:46 2 UNITS Sodium Bicarbonate 650 mg BID PO 03/03/25 10:00 03/04/25 09:45 650 MG Alprazolam 0.25 mg Q12HP PRN PO 03/02/25 23:00 Hydrocortisone Sodium Succinate 50 mg Q12HR IV 03/03/25 22:00 03/04/25 09:46 50 MG Allopurinol 50 mg DAILY PO 03/03/25 13:31 03/04/25 09:45 50 MG Docusate Sodium 100 mg BID PO 03/04/25 22:00 Lactulose 30 ml Q6HR PRN PO 03/04/25 16:30 Losartan Potassium 12.5 mg DAILY PO 03/05/25 10:00 Polyethylene Glycol 17 gm DAILY PO 03/05/25 10:00 Sennosides 8.6 mg HS PO 03/05/25 22:00 Prednisone 40 mg DAILY PO 03/05/25 10:00 laboratory and microbiology Laboratory Tests 5/8/25 05:28 03/03/25 04:28 Test 03/04/25 05:28 Range/Units Serum Glucose 121 H 74-106 mg/dL Problem List Acute on chronic congestive heart failure Acute cor pulmonale Acute on chronic renal failure Acute gout Uncontrolled NIDDM Uncontrolled hypertension Exogenous obesity in a young adult with current BMI > 30-35 kg per m2 Assessment/Plan admit patient to telemetry floor Serial EKGs and enzymes 2D echocardiogram Continue NTG 0.4 mg sublingual Q 5 minutes x3 p.r.n. angina Continue lisinopril 2.[address] patient on hydralazine 50 mg p.o. Q 8 hr Reviewed results of Renal ultrasound Awaiting results of 2D echo Daily intake and output Dietary Evaluation Review Comments: 1) CCHO 45gm + renal specific 50gm protein 2) Refer to out-patient RD for DM/CKD diet edu follow up 3) Continue current plan of care Expected Outcomes/Goals: lab values to improve FU 3-5 days AMY QURESHI MD March 04, 2025 23:35
[2025-03-05] VITALS (8 sets, daily range): BP systolic 95–128; BP diastolic 50–74; PULSE 62–98; RESP 14–18; TEMP 98.1–98.7; O2SAT 96–99
[2025-03-05] MEDS: DOCUSATE SOD 100 MG CAP PO SCH (00:01)
[2025-03-05 06:37] LABS: Chloride 100 mmol/L (98-107)
[2025-03-05 06:38] LABS: Anion Gap 13 (5-15); Calcium 9.2 mg/dL (8.7-10.4); Carbon Dioxide 22 mmol/L (20-31)
[2025-03-05 06:42] LABS: Potassium 3.5 mmol/L (3.5-5.1); Sodium 135 mmol/L (136-145)
[2025-03-05 06:43] LABS: Uric Acid 12.2 mg/dL (3.1-7.8)
[2025-03-05 06:44] LABS: BUN/Creatinine Ratio 22.7 (10.0-20.0); Blood Urea Nitrogen 69 mg/dL (9-23); Glucose 122 mg/dL (74-106)
[2025-03-05 08:07] LABS: Complement C3 132 mg/dL (82-167)
[2025-03-05 09:48] LABS: Hepatitis B Surface Antibody Negative (Negative)
--- NOTE | 2025-03-05 09:54 | DVH ---
INDICATION: SEVERE BACK PAINS COMPARISON: None TECHNIQUE: 4 views of the lumbar spine were obtained. FINDINGS: The lumbar vertebral alignment is normal. The intervertebral disc spaces are well-maintained. No significant facet arthropathy is noted. No acute fracture, vertebral compression deformity or aggressive osseous lesions. The paravertebral soft tissues are grossly unremarkable. IMPRESSION: No acute fracture.
--- NOTE | 2025-03-05 09:55 | DVH ---
EXAM: XY CHEST TWO VIEWS ROUTINE CLINICAL HISTORY: chf COMPARISON: None TECHNIQUE: Frontal and lateral view of the chest was obtained FINDINGS: Lines and Tubes: None Lungs: No focal consolidation. Pleura: No effusion. No pneumothorax. Cardiomediastinal contours: Unremarkable Bones: No acute osseous abnormality. IMPRESSION: No acute cardiopulmonary disease.
[2025-03-05 09:58] LABS: Hepatitis B Surface Antigen Negative (Negative)
[2025-03-05] MEDS: predniSONE 20 MG TAB PO SCH (10:00)
--- NOTE | 2025-03-05 10:17 | PRN ---
Misceleneous Note Note Note signing off to JAMSHID Gómez MD March 05, 2025 10:17
[2025-03-05 10:21] LABS: Hepatitis C Antibody Negative (Negative)
[2025-03-05] MEDS: LOSARTAN POTASSIUM 25 MG TAB PO SCH (10:50)
[2025-03-05] MEDS: POLYETHYLENE GLYCOL 17 GM PWDR PO SCH (10:51)
[2025-03-05 11:07] LABS: Anti-Nuclear Antibody Direct Negative (Negative)
--- NOTE | 2025-03-05 15:04 | DVHPN2 ---
Progress Note - Dictate Date Seen: March 05, 2025 Medical Necessity Reason Pt with a Central, PICC or Fol: No Subjective Patient overall feeling better she wants to go home. Daughter is at bedside. vital signs Vital Sign Date Time Temp Pulse Resp B/P (MAP) Pulse Ox O2 Delivery O2 Flow Rate FiO2 03/05/25 13:00 98.2 64 17 116/56 (76) 99 98.2 03/05/25 08:00 Room Air* 0 21 Total Intake and Output 03/04/25 03/04/25 03/05/25 15:00 23:00 07:00 Intake Total 800 ml 250 ml Balance 800 ml 250 ml medications Current Medications Medications Dose Ordered Sig/Zak Route Start Time Stop Time Status Last Admin Dose Admin Atorvastatin Calcium 40 mg HS PO 03/03/25 22:00 03/05/25 00:01 40 MG Empaglifozin 10 mg DAILY@0800 PO 03/03/25 08:00 Insulin Human Lispro ACHS SC 03/02/25 22:00 03/05/25 11:49 2 UNITS Sodium Bicarbonate 650 mg BID PO 03/03/25 10:00 03/05/25 10:39 650 MG Alprazolam 0.25 mg Q12HP PRN PO 03/02/25 23:00 Hydrocortisone Sodium Succinate 50 mg Q12HR IV 03/03/25 22:00 03/05/25 10:46 50 MG Allopurinol 50 mg DAILY PO 03/03/25 13:31 03/05/25 10:48 50 MG Docusate Sodium 100 mg BID PO 03/04/25 22:00 03/05/25 10:46 100 MG Lactulose 30 ml Q6HR PRN PO 03/04/25 16:30 Losartan Potassium 12.5 mg DAILY PO 03/05/25 10:00 03/05/25 10:50 12.5 MG Polyethylene Glycol 17 gm DAILY PO 03/05/25 10:00 03/05/25 10:51 17 GM Sennosides 8.6 mg HS PO 03/05/25 22:00 Prednisone 40 mg DAILY PO 03/05/25 10:00 03/05/25 10:00 40 MG objective HEENT: No evidence of JVD, no oral ulcers. Pulmonary: Lungs are clear on auscultation bilaterally Cardiovascular S1-S2, no S3 or S4 Abdomen: Bowel sounds positive, soft no rebound tenderness Skin: No rash Neurological: Alert, oriented, no focal weakness Extremities: Left 1st metatarsophalangeal joint tenderness, no edema laboratory and microbiology Laboratory Tests 03/05/25 05:26 03/03/25 04:28 Test 03/05/25 05:26 Range/Units Serum Glucose 122 H 74-106 mg/dL Assessment/Plan Assessment: 1. Chronic kidney disease stage 4, follows with Dr. Benavides until now. 2. Mild CHF exacerbation. 2D echo: Conclusion Normal LV size and systolic function. LVEF estimated at 60-65%. Normal wall motion. Grade 1 diastolic dysfunction. Normal RV size and systolic function. Trileaflet aortic valve with mild sclerosis. Mild AI. Trace TR. RVSP estimated at 28 mmHg based on an RAP of 3 mmHg. Normal IVC. No pericardial effusion. 3. Hyperuricemia 4. Acute gout attack, podagra 5. Bilateral flank pain concerns for lithiasis, UTI 6. Diabetes type 2 7. Hypertension 8. Constipation. 9. Cholelithiasis. 10. Fatty liver. 11. Anemia Plan and recommendations: Currently on prednisone for acute gout attack at the discretion of the primary attending. Currently on allopurinol 50 mg daily. Hopefully with dietary changes this could be discontinued. Low purine diet education completed and resources for low purine diet was given. Dietitian met with the patient Resources for Chronic kidney disease plant based protein diet was given to the daughter Discontinue hydrochlorothiazide upon discharge. Switch lisinopril to losartan low dose in view uricosuric effect, renal protection, and antihypertensive med Continue SGLT2 inhibitor which she was taking before Continuation of Xarelto to the discretion of the primary attending Renal ultrasound reveals medical renal disease, no stones, no hydronephrosis, no mass all this was reviewed with the patient and the family at bedside. Concerns for gouty nephropathy as the etiology for her Chronic kidney disease, diagnosed. Genetic testing as an outpatient consider. Kidney biopsy at this point would likely yield only scar tissue and the risk of bleeding is significantly increased which could least two loss of kidney function that remains currently. Negative double-stranded DNA, HINA, C3-C4 No significant proteinuria, UA was bland. Avoid NSAIDs was discussed Avoid IV contrast Continue bowel regimen patient refused MiraLax yesterday. Offered to GI consultation and general surgery consultation but patient declined. Okay to discharge home patient wants to follow up with the Dr. Breezy jean-baptiste as an outpatient. Thank you very much for allowing us to participate in the care of this patient. Dietary Evaluation Review Comments: 1) CCHO 45gm + renal specific 50gm protein 2) Refer to out-patient RD for DM/CKD diet edu follow up 3) Continue current plan of care Expected Outcomes/Goals: lab values to improve FU 3-5 days Plan discussed with: Patient, Daughter MAXIMINO ALEX MD March 05, 2025 15:04
[2025-03-05] MEDS: SENNA 8.6 MG TAB PO SCH (21:19)
--- NOTE | 2025-03-05 23:45 | DVHPN2 ---
Progress Note - Dictate Date Seen: March 05, 2025 Medical Necessity Reason Pt with a Central, PICC or Fol: No Subjective Currently being treated for NANCY on CKD, CHF and acute gout the patient was seen by Dr. Fragoso Patient was recommended outpatient cardiac workup Patient reports to have symptoms of back pain Patient's daughter had reported grievances about care vital signs Vital Sign Date Time Temp Pulse Resp B/P (MAP) Pulse Ox O2 Delivery O2 Flow Rate FiO2 03/05/25 21:00 98.4 71 18 115/59 (77) 96 98.4 03/05/25 08:00 Room Air* 0 21 Total Intake and Output 03/04/25 03/04/25 03/05/25 15:00 23:00 07:00 Intake Total 800 ml 250 ml Balance 800 ml 250 ml medications Current Medications Medications Dose Ordered Sig/Zak Route Start Time Stop Time Status Last Admin Dose Admin Atorvastatin Calcium 40 mg HS PO 03/03/25 22:00 03/05/25 21:18 40 MG Empaglifozin 10 mg DAILY@0800 PO 03/03/25 08:00 Insulin Human Lispro ACHS SC 03/02/25 22:00 03/05/25 21:29 4 UNITS Sodium Bicarbonate 650 mg BID PO 03/03/25 10:00 03/05/25 21:18 650 MG Alprazolam 0.25 mg Q12HP PRN PO 03/02/25 23:00 Allopurinol 50 mg DAILY PO 03/03/25 13:31 03/05/25 10:48 50 MG Docusate Sodium 100 mg BID PO 03/04/25 22:00 03/05/25 21:18 100 MG Lactulose 30 ml Q6HR PRN PO 03/04/25 16:30 Losartan Potassium 12.5 mg DAILY PO 03/05/25 10:00 03/05/25 10:50 12.5 MG Polyethylene Glycol 17 gm DAILY PO 03/05/25 10:00 03/05/25 10:51 17 GM Sennosides 8.6 mg HS PO 03/05/25 22:00 03/05/25 21:19 8.6 MG Prednisone 40 mg DAILY PO 03/05/25 10:00 03/05/25 10:00 40 MG laboratory and microbiology Laboratory Tests 03/05/25 05:26 03/03/25 04:28 Test 03/05/25 05:26 Range/Units Serum Glucose 122 H 74-106 mg/dL Problem List Acute on chronic congestive heart failure Acute cor pulmonale Acute on chronic renal failure Acute gout Uncontrolled NIDDM Uncontrolled hypertension Exogenous obesity in a young adult with current BMI > 30-35 kg per m2 Assessment/Plan 1. Chronic kidney disease stage 4, follows with Dr. Benavides until now. 2. Mild CHF exacerbation. 2D echo: Conclusion Normal LV size and systolic function. LVEF estimated at 60-65%. Normal wall motion. Grade 1 diastolic dysfunction. Normal RV size and systolic function. Trileaflet aortic valve with mild sclerosis. Mild AI. Trace TR. RVSP estimated at 28 mmHg based on an RAP of 3 mmHg. Normal IVC. No pericardial effusion. 3. Hyperuricemia 4. Acute gout attack, podagra 5. Bilateral flank pain concerns for lithiasis, UTI 6. Diabetes type 2 7. Hypertension 8. Constipation. 9. Cholelithiasis. 10. Fatty liver. 11. Anemia Plan and recommendations: Currently on prednisone for acute gout attack at the discretion of the primary attending. Currently on allopurinol 50 mg daily. Hopefully with dietary changes this could be discontinued. Low purine diet education completed and resources for low purine diet was given. Dietitian met with the patient Resources for Chronic kidney disease plant based protein diet was given to the daughter Discontinue hydrochlorothiazide upon discharge. Switch lisinopril to losartan low dose in view uricosuric effect, renal protection, and antihypertensive med Continue SGLT2 inhibitor which she was taking before Continuation of Xarelto to the discretion of the primary attending Renal ultrasound reveals medical renal disease, no stones, no hydronephrosis, no mass all this was reviewed with the patient and the family at bedside. Concerns for gouty nephropathy as the etiology for her Chronic kidney disease, diagnosed. Genetic testing as an outpatient consider. Kidney biopsy at this point would likely yield only scar tissue and the risk of bleeding is significantly increased which could least two loss of kidney function that remains currently. Negative double-stranded DNA, HINA, C3-C4 No significant proteinuria, UA was bland. Avoid NSAIDs was discussed Avoid IV contrast Continue bowel regimen patient refused MiraLax yesterday. Offered to GI consultation and general surgery consultation but patient declined. Dietary Evaluation Review Comments: 1) CCHO 45gm + renal specific 50gm protein 2) Refer to out-patient RD for DM/CKD diet edu follow up 3) Continue current plan of care Expected Outcomes/Goals: lab values to improve FU 3-5 days AMY QURESHI MD March 05, 2025 23:45
[2025-03-06] MEDS ORDERED: DOCU-265 PO (00:05)
[2025-03-06] MEDS ORDERED: LOS25T PO ×2 (00:05→10:58)
[2025-03-06] MEDS ORDERED: PRED20TA2 PO ×2 (00:05→10:58)
[2025-03-06] MEDS ORDERED: ALL100T PO ×2 (00:05→10:58)
[2025-03-06 01:00] VITALS: BP 112/56; PULSE 64; RESP 17; TEMP 98.4; O2SAT 98
[2025-03-06 05:00] VITALS: BP 111/54; PULSE 62; RESP 17; TEMP 98.4; O2SAT 97
[2025-03-06 07:30] VITALS: PULSE 58; PULSE 61; RESP 18; O2SAT 100
[2025-03-06 09:00] VITALS: BP 127/71; PULSE 61; RESP 18; TEMP 98.3; O2SAT 93
[2025-03-06] MEDS: predniSONE 20 MG TAB PO SCH (09:02)
[2025-03-06] MEDS: RIVAROXABAN 10 MG TAB PO SCH (09:03)
[2025-03-06] MEDS ORDERED: DAPA1TAB4 PO (10:58)
[2025-03-06] MEDS ORDERED: RIVA10TA2 PO (10:58)
[2025-03-06] MEDS ORDERED: ATOR40TA52 PO (10:58)
--- NOTE | 2025-03-06 11:12 | DVHDS2 ---
Discharge Summary Date of Admission March 02, 2025 at 20:52 Date of Discharge: March 06, 2025 Labs/Diagnostic Data: Laboratory Results Test 03/06/25 06:15 03/05/25 05:26 03/04/25 05:28 03/03/25 18:20 POC Glucose 142 mg/dl (70-106) Sodium Level 135 mmol/L (136-145) Potassium Level 3.5 mmol/L (3.5-5.1) Chloride Level 100 mmol/L (98-107) Carbon Dioxide Level 22 mmol/L (20-31) Anion Gap 13 (5-15) Blood Urea Nitrogen 69 mg/dL (9-23) Creatinine 3.04 mg/dL (0.550-1.02) Glomerular Filtration Rate Calc 17 mL/min (>90) BUN/Creatinine Ratio 22.7 (10.0-20.0) Serum Glucose 122 mg/dL (74-106) Uric Acid 12.2 mg/dL (3.1-7.8) Calcium Level 9.2 mg/dL (8.7-10.4) Erythrocyte Sedimentation Rate 28 mm/hr (0-20) C-Reactive Protein High Sensitivity 0.73 mg/dL (<1.0) Hepatitis B Surface Antigen Negative (Negative) Hepatitis B Surface Antibody Negative (Negative) Hepatitis C Antibody Negative (Negative) Urine Color Colorless (Yellow) Urine Clarity Clear (Clear) Urine pH 5.0 (5.0-9.0) Urine Specific [place] 1.005 (1.001-1.035) Urine Protein Negative (Negative) Urine Ketones Negative (Negative) Urine Blood Negative /uL (Negative) Urine Nitrite Negative (Negative) Urine Bilirubin Negative (Negative) Urine Urobilinogen Normal mg/dL (Negative) Urine Leukocyte Esterase Negative /uL (Negative) Urine RBC None seen /hpf (0 - 4) Urine Microscopic WBC /HPF (0-5) Urine Squamous Epithelial Cells None seen /hpf (<5) Urine Bacteria None seen /hpf (None Seen) Urine Creatinine 14.45 mg/dL (30.0-125.0) Urine Protein/Creatinine Ratio 0.42 Urine Glucose 2+ mg/dL (Normal) Urine Total Protein < 6.0 mg/dL (1-14) Test 03/03/25 15:50 03/03/25 04:28 Anti-Nuclear Antibody Screen Negative (Negative) Complement C3 132 mg/dL (82-167) Complement C4 46 mg/dL (12-38) White Blood Count 7.3 10^3/uL (4.4-10.8) Red Blood Count 3.99 10^6/uL (4.0-5.20) Hemoglobin 11.6 g/dL (12.2-16.2) Hematocrit 33.2 % (36.0-46.0) Mean Corpuscular Volume 83.2 fL (80.0-100.0) Mean Corpuscular Hemoglobin 29.1 pg (28.0-32.0) Mean Corpuscular Hemoglobin Concent 34.9 g/dL (32.0-36.0) Red Cell Distribution Width 13.4 % (11.8-14.3) Platelet Count 287 10^3/uL (140-450) Mean Platelet Volume 9.0 fL (6.9-10.8) Neutrophils (%) (Auto) 50.8 % (37.0-80.0) Lymphocytes (%) (Auto) 41.4 % (10.0-50.0) Monocytes (%) (Auto) 7.2 % (0.0-12.0) Eosinophils (%) (Auto) 0.3 % (0.0-7.0) Basophils (%) (Auto) 0.3 % (0.0-2.0) Neutrophils # (Auto) 3.7 10 ^3/uL (1.6-8.6) Lymphocytes # (Auto) 3.0 10 ^3/uL (0.4-5.4) Monocytes # (Auto) 0.5 10 ^3/uL (0-1.3) Eosinophils # (Auto) 0 10 ^3/uL (0-0.8) Basophils # (Auto) 0 10 ^3/uL (0-0.2) Nucleated Red Blood Cells 0.1 % Hemoglobin A1c 6.2 % A1C (<5.7) Phosphorus Level 3.9 mg/dL (2.4-5.1) Magnesium Level 2.1 mg/dL (1.6-2.6) Total Bilirubin 0.3 mg/dL (0.2-1.0) Aspartate Amino Transferase (AST) 13 U/L (13-40) Alanine Aminotransferase (ALT) 17 U/L (7-40) Alkaline Phosphatase 87 U/L (46-116) Total Protein 6.8 g/dL (5.7-8.2) Albumin 4.4 g/dL (3.2-4.8) Triglycerides Level 94 mg/dL (< 150) Cholesterol Level 153 mg/dL (< 200) LDL Cholesterol 71 mg/dL (< 100) HDL Cholesterol 59 mg/dL (40-59) Other Laboratory Tests 03/05/25 05:26 03/03/25 04:28 Final Diagnosis/Problems List 1. Acute diastolic Congestive heart failure 2. Acute on chronic renal failure from a. Hypertensive CKD b. gouty nephropathy 3. Fairly well controlled NIDDM 4. Fairly well controlled hypertension Discharge Disposition: Home Discharge Instruct/Medications Diet: Consistent carbohydrate, Cardiac 2g Na,low cholest Diet comment: 1500 lea low carb Protein 45 g, low Na 2 g, Low cholesterol Activity: No Restrictions, As Tolerated Activity comment: Walking exercise up to 1-3 mile/d Follow Up/Referral: Dr. Brenda Cruz in 3-5 days PMD in 1-5 days Medications: pl refer to discharge med rec Avoid naprosyn, Aleve, Ibuprofen, Motrin, Indomethacin or any NSAIDS Avoid radio contrast CAT/MRI study Avoid Phenergan, hepatotoxic meds, Tylenol ( not more than 3 tabs) Discharge Statement: "Patient was advised to return to the ER or call 911 if any headaches, dizziness, shortness of breath, chest pain, abdominal pain, bleeding, fevers, or worsening of medical condition. Patient was counseled about treatment plan, medications, possible side effects, patientverbalized understanding. All questions were answered to the best of my ability. This discharge took greater then 30 minutes in planning, reviewing documentation, counseling the patient, and discussing with other team members." ASSESSMENT ASSESSMENT Assessment 1. Acute diastolic Congestive heart failure 2. Acute on chronic renal failure from a. Hypertensive CKD b. gouty nephropathy 3. Fairly well controlled NIDDM 4. Fairly well controlled hypertension AMY QURESHI MD March 06, 2025 11:12
[2025-03-06] MEDS ORDERED: FURO1TAB33 PO (12:26)
[2025-03-06 13:00] VITALS: BP 105/63; PULSE 57; RESP 17; TEMP 98; O2SAT 95
[2025-03-06 14:13] VITALS: BP 112/57
== END 2025-03-06 17:00 | disposition home or self-care (01) | DRG 194 ==
LOC: TELE-WESTW 20:52
PROVIDERS: ADMIT Specialist; ATTEND Specialist
DX: I13.0 Hypertensive heart and chronic kidney disease with heart failure and stage 1 through stage 4 chronic kidney disease, or unspecified chronic kidney disease (principal); I26.09 Other pulmonary embolism with acute cor pulmonale; E11.22 Type 2 diabetes mellitus with diabetic chronic kidney disease; E66.2 Morbid (severe) obesity with alveolar hypoventilation; D64.9 Anemia, unspecified; K21.9 Gastro-esophageal reflux disease without esophagitis; K76.0 Fatty (change of) liver, not elsewhere classified; N39.0 Urinary tract infection, site not specified; K59.01 Slow transit constipation; I50.33 Acute on chronic diastolic (congestive) heart failure; M10.9 Gout, unspecified; K80.20 Calculus of gallbladder without cholecystitis without obstruction; N18.4 Chronic kidney disease, stage 4 (severe); Z82.49 Family history of ischemic heart disease and other diseases of the circulatory system; Z86.718 Personal history of other venous thrombosis and embolism; Z79.899 Other long term (current) drug therapy; Z68.31 Body mass index [BMI] 31.0-31.9, adult; Z83.3 Family history of diabetes mellitus; Z79.84 Long term (current) use of oral hypoglycemic drugs
CPT/HCPCS: 36415; 71045; 71046; 72110; 73620; 76700; 80048; 80053; 80061; 81001; 82570; 82962; 83036; 83735; 84100; 84156; 84550; 85025; 85652; 86038; 86141; 86160; 86706; 86803; 87086; 87340; 93306; 93970; G0378; J1815

== ENCOUNTER 2025-03-02 20:03 | Emergency (ER) | payer MEDICAID ==
[~2025-03-02] VITALS: Ht 152.4 cm; Wt 77.3 kg
[2025-03-02 20:20] VITALS: BP 153/67; RESP 18; TEMP 98.4; O2SAT 98
[2025-03-02 20:28] VITALS: PULSE 72
[2025-03-02 20:58] LABS: Basophils # (auto) 0 10 ^3/uL (0-0.2); Basophils % (auto) 0.3 % (0.0-2.0); Eosinophils # (auto) 0 10 ^3/uL (0-0.8); Hematocrit 37.5 % (36.0-46.0); Hemoglobin 12.8 g/dL (12.2-16.2); Lymphocytes % (auto) 16.7 % (10.0-50.0); Mean Corpuscular Hemoglobin 28.6 pg (28.0-32.0); Mean Corpuscular Hgb Conc. 34.2 g/dL (32.0-36.0); Mean Corpuscular Volume 83.5 fL (80.0-100.0); Monocytes # (auto) 0.4 10 ^3/uL (0-1.3); Monocytes % (auto) 6.8 % (0.0-12.0); Neutrophils # (auto) 4.5 10 ^3/uL (1.6-8.6); Neutrophils % (auto) 76.2 % (37.0-80.0); Nucleated Red Blood Cells % 0.1 %; Platelet Count (auto) 324 10^3/uL (140-450); Red Blood Cells 4.49 10^6/uL (4.0-5.20); Red Cell Distribution Width 13.7 % (11.8-14.3); White Blood Cell 5.9 10^3/uL (4.4-10.8)
[2025-03-02 21:07] LABS: Alanine Aminotransferase 19 U/L (7-40); Alkaline Phosphatase 94 U/L (46-116); Anion Gap 14 (5-15); Aspartate Aminotransferase 13 U/L (13-40); BUN/Creatinine Ratio 23.4 (10.0-20.0); Bilirubin, Total 0.3 mg/dL (0.2-1.0); Blood Urea Nitrogen 69 mg/dL (9-23); Calcium 10.2 mg/dL (8.7-10.4); Carbon Dioxide 20 mmol/L (20-31); Chloride 101 mmol/L (98-107); Glucose 221 mg/dL (74-106); Potassium 4.3 mmol/L (3.5-5.1); Sodium 135 mmol/L (136-145); Total Protein 7.9 g/dL (5.7-8.2)
--- NOTE | 2025-03-02 21:24 | ECG ---
[facility] Test Date: 2025-03-02 Test Time: 20:28:56 Pat Name: SUZY HERNANDEZ Department: ER Room: Gender: F Steel Manager: : 1960 Requested By: PAULY SR Order Number: [id number] Reading MD: Lee Garcia Measurements Intervals Hugo Rate: 72 P: 55 OH: 157 QRS: 37 QRSD: 86 T: 59 QT: 389 QTc: 426 Interpretive Statements Sinus rhythm Supraventricular bigeminy Low voltage, precordial leads Borderline T abnormalities, anterior leads Electronically Signed On 03-04-2025 21:14:36 PDT by Lee Garcia Please click the below link to view image of tracing.
[2025-03-02] MEDS ORDERED: ATOR40TA52 PO (23:23)
[2025-03-02] MEDS ORDERED: HYDR25TA5 PO (23:23)
[2025-03-02] MEDS ORDERED: RIVA10TA2 PO (23:23)
[2025-03-02] MEDS ORDERED: DAPA1TAB4 PO (23:23)
[2025-03-03 01:50] LABS: Urine Bacteria None Seen /hpf (None Seen)
[2025-03-03 02:29] LABS: Urine Blood Negative /uL (Negative); Urine Clarity Clear (Clear); Urine Color Colorless (Yellow); Urine Protein, UAD Negative (Negative); Urine Specific Gravity 1.006 (1.001-1.035); Urine Squamous Epithelial Cell None Seen /hpf (<5); Urine Urobilinogen Normal (Negative); Urine WBC < 1 /HPF (0-5)
== END 2025-03-03 00:44 | disposition left against medical advice (07) ==
LOC: ER 20:03
DX: R06.02 Shortness of breath (principal); Z53.21 Procedure and treatment not carried out due to patient leaving prior to being seen by health care provider
CPT/HCPCS: 36415; 80053; 81001; 83880; 84484; 85025; 93005